=== PATIENT | female | born 1940 | race Caucasian/White ===

== ENCOUNTER 2016-11-29 09:51 | Emergency (ER) | payer OTHER ==
--- NOTE | 2016-11-29 09:49 | EDPHY ---
H & P Time Seen by Provider: 11/29/16 09:49 HPI/ROS: CHIEF COMPLAINT: Passed out at home HISTORY OF PRESENT ILLNESS: This 76-year-old woman was at home and has been feeling pretty well except for having some congestion the last couple of days. She made breakfast her grandchild and then felt a little bit lightheaded sat down and passed out for about a minute. No seizure activity no trauma. She did have a report of hypotension prior to arrival with a blood pressure of 74 systolic by EMS prior to arrival. REVIEW OF SYSTEMS: Eye: no change in vision ENT: no sore throat, some head/congestion as in HPI Cardiac: no chest pain or syncope Pulmonary: no cough or SOB Abdomen: no vomiting, diarrhea, abdominal pain Musculoskeletal: no back pain Skin: no rash Neuro: no headache Constitutional: no fever : no urinary symptoms A comprehensive 10 point review of systems is otherwise negative aside from elements mentioned in the history of present illness. PAST MEDICAL HISTORY: Hypothyroid and cholesterol Social history: No smoking or alcohol General Appearance: Alert and conversant, cooperative. Eyes: No scleral icterus. ENT, Mouth: Normal mucous membranes. Respiratory: Normal respiratory effort, breath sounds equal, lungs are clear to auscultation. Cardiovascular: Regular rate and rhythm. 2/6 systolic murmur. Gastrointestinal: Abdomen is soft and non tender. Neurological: Alert and oriented x3. Normally conversant. Face symmetric, normal movement and sensation in all extremities. Skin: Warm and dry, no rashes. Musculoskeletal: No peripheral edema and no joint swelling. Psychiatric: Not agitated. Emergency Department course/MDM: Patient presents with syncope today, risk factors include heart murmur on exam which the patient tells me she has never had before, and report of hypotension with blood pressure in the 70s pre-hospital. Her primary care physician is Uzair Cummings at [facility]. 1048: Results discussed with patient. [facility] called at this time; Dr. Browning , admit to [facility]. Per Nam no previous mention of cardiac murmur in problem list. 1228: Discussed with Dr. Tejada at 12:27 p.m. requested oral aspirin and adding D -dimer. Constitutional: Initial Vital Signs Heart Rate 64 11/29/16 10:01 Respiratory Rate 18 11/29/16 10:01 Blood Pressure 103/64 11/29/16 10:01 O2 Sat (%) 94 11/29/16 10:01 O2 Delivery Mode Room Air Allergies/Adverse Reactions: No Known Allergies Allergy (Unverified 11/29/16 10:05) Home Medications: Medication Instructions Recorded Estradiol [Estradiol Transdermal 1 each TD FR 11/29/16 Patch] Levothyroxine [Synthroid 100 mcg 100 mcg PO HS 11/29/16 (*)] Niacin [Niacin 500 mg (*)] 500 mg PO DAILY 11/29/16 Medical Decision Making - Diagnostics EKG Interpretation: 12-lead EKG interpreted by me; official reading is in trace master. My interpretation is sinus bradycardia rate of 48 otherwise normal Differential Diagnosis: Differential diagnosis considered for syncope including but not limited to vasovagal syncope, arrhythmia, dehydration, and blood loss. Consult/Admit Bed Type: [facility] for Cards 1108, [place] 1109 for Garas - Data Points Laboratory Results: Laboratory Results 11/29/16 09:53 11/29/16 09:53 11/29/16 11/29/16 09:53 09:53 WBC 7.72 10^3/uL 10^3/uL (3.80-9.50) RBC 4.76 10^6/uL 10^6/uL (4.18-5.33) Hgb 15.0 g/dL g/dL (12.6-16.3) Hct 45.7 % % (38.0-47.0) MCV 96.0 fL fL (81.5-99.8) MCH 31.5 pg pg (27.9-34.1) MCHC 32.8 g/dL g/dL (32.4-36.7) RDW 12.3 % % (11.5-15.2) Plt Count 332 10^3/uL 10^3/uL (150-400) MPV 10.5 fL fL (8.7-11.7) Neut % (Auto) 53.3 % % (39.3-74.2) Lymph % (Auto) 38.9 % % (15.0-45.0) Miller % (Auto) 5.6 % % (4.5-13.0) Eos % (Auto) 1.2 % % (0.6-7.6) Baso % (Auto) 0.6 % % (0.3-1.7) Nucleat RBC Rel Count 0.0 % % (0.0-0.2) Absolute Neuts (auto) 4.12 10^3/uL 10^3/uL (1.70-6.50) Absolute Lymphs (auto) 3.00 10^3/uL 10^3/uL (1.00-3.00) Absolute Monos (auto) 0.43 10^3/uL 10^3/uL (0.30-0.80) Absolute Eos (auto) 0.09 10^3/uL 10^3/uL (0.03-0.40) Absolute Basos (auto) 0.05 10^3/uL 10^3/uL (0.02-0.10) Absolute Nucleated RBC 0.00 10^3/uL 10^3/uL (0-0.01) Immature Gran % 0.4 % % (0.0-1.1) Immature Gran # 0.03 10^3/uL 10^3/uL (0.00-0.10) Sodium 141 mEq/L mEq/L (134-144) Potassium 4.5 mEq/L mEq/L (3.5-5.2) Chloride 106 mEq/L mEq/L (97-110) Carbon Dioxide 24 mEq/l mEq/l (22-31) Anion Gap 11 mEq/L mEq/L (8-16) BUN 18 mg/dL mg/dL (7-23) Creatinine 0.8 mg/dL mg/dL (0.6-1.0) Estimated GFR > 60 Glucose 129 mg/dL H mg/dL (70-100) Calcium 9.7 mg/dL mg/dL (8.5-10.4) Troponin I < 0.012 ng/mL ng/mL (0-0.034) Medications Given: Discontinued Medications Sodium Chloride (Ns) 500 mls @ 0 mls/hr IV ONCE ONE PRN Reason: As Directed Stop: 11/29/16 10:01 Last Admin: 11/29/16 10:22 Dose: 500 mls Departure - Departure Disposition: [facility] Inpatient Acute Clinical Impression: Syncope Qualifiers: Syncope type: unspecified Qualified Code(s): R55 - Syncope and collapse Condition: Good
[2016-11-29] MEDS ORDERED: NS 500 ML IV ONE (10:00)
--- NOTE | 2016-11-29 10:07 | CPEKG ---
Heart Rate: 48 RR Interval: 1250 P-R Interval: 196 QRSD Interval: 88 QT Interval: 504 QTC Interval: 451 P Slater: 46 QRS Slater: -4 T Wave Slater: 43 EKG Severity - OTHERWISE NORMAL ECG - EKG Impression: SINUS BRADYCARDIA Electronically Signed By: Fazal Subramanian 29-Nov-2016 10:17:37
[2016-11-29 10:12] LABS: % IMMATURE GRANULYOCYTES 0.4 % (0.0-1.1); ABSOLUTE IMMATURE GRANULOCYTES 0.03 10^3/uL (0.00-0.10); ADD DIFF? NO; ADD MORPH? NO; ADD SCAN? NO; ATYPICAL LYMPHOCYTE FLAG 10 (0-99); FRAGMENT RBC FLAG 0 (0-99); HEMATOCRIT 45.7 % (38.0-47.0); LEFT SHIFT FLG 0 (0-99); LIPEMIA HEMOLYSIS FLAG 80 (0-99); MEAN CELL HEMOGLOBIN 31.5 pg (27.9-34.1); MEAN CELL HEMOGLOBIN CONCENTR. 32.8 g/dL (32.4-36.7); MEAN PLATELET VOLUME 10.5 fL (8.7-11.7); PLATELET CLUMPS FLAG 10 (0-99); PLATELET COUNT 332 10^3/uL (150-400); RED BLOOD CELL COUNT 4.76 10^6/uL (4.18-5.33); RED CELL DISTRIBUTION WIDTH 12.3 % (11.5-15.2)
[2016-11-29 10:38] LABS: ANION GAP 11 mEq/L (8-16); CALCIUM 9.7 mg/dL (8.5-10.4); CARBON DIOXIDE 24 mEq/l (22-31); CHLORIDE 106 mEq/L (97-110); CREATININE 0.8 mg/dL (0.6-1.0); GLOMERULAR FILTRATION RATE > 60; GLUCOSE 129 mg/dL (70-100); POTASSIUM 4.5 mEq/L (3.5-5.2); SODIUM 141 mEq/L (134-144)
[2016-11-29 10:46] LABS: TROPONIN I < 0.012 ng/mL (0-0.034)
--- NOTE | 2016-11-29 12:05 | ECHO ---
[id number] + + [address] : : [place] [address] : : [phone] + + Adult Echocardiographic Report + -----+ :Name: Micaela PATEL Date: 11/29/2016 11:38 AM : : Hospital Admission Number: [id number] Location: 16: :: 1940 Gender: Female Height: 64 in : :Age: 76 yrs Race: WH Weight: 171 lb : :Reason For Study: Eval LV Fx : : BSA: 1.8 meters2 : :History: Syncope, New murmur : + -----+ MMode/2D Measurements \T\ Calculations IVSd: 0.74 cm LVIDd: 3.6 cm FS: 33.3 % Ao root diam: 3.3 cm LVPWd: 0.77 cm LVIDs: 2.4 cm EDV(Teich): 55.5 ml ACS: 1.1 cm ESV(Teich): 20.6 ml LA dimension: 3.8 cm EF(Teich): 62.9 % LVOT diam: 2.0 cm LVOT area: 3.1 cm2 Normal Measurement Values: + + :LVIDd (3.5-5.7cm) IVSd (0.6-1.1cm) LVPWd (0.6-1.1cm) Aortic Root (2.0-3.7cm)Left Atrium (1.5-4.0cm): :LV Vol(d) (76-115ml) LV Vol(s) (29-48ml) Ejec Fraction (50-65%)PV Alonso (0.6- 1.2m/s) TV Alonso (0.4-1.0m/s) : :MV E Alonso (0.8-1.0m/s)MV A Alonso (0.3-1.0m/s)LVOT Alonso (0.7-1.2m/s) Asc Ao Alonso ( 0.9-1.8m/s) : + + Doppler Measurements \T\ Calculations MV E max alonso: Ao V2 max: LV V1 max: SV(LVOT): 102.0 cm/sec 259.0 cm/sec 100.0 cm/sec 74.1 ml MV A max alonso: Ao max P.9 mmHgLV V1 max P.4 cm/sec Ao mean P.0 mmHg MV E/A: 1.3 16.0 mmHg LV V1 mean PG: Ao V2 mean: 2.0 mmHg 189.8 cm/sec LV V1 mean: Ao V2 VTI: 67.5 cm 62.2 cm/sec LV V1 VTI: 23.6 cm SAULO(I,D): 1.1 cm2 SAULO(V,D): 1.2 cm2 PA V2 max: TR max alonso: 76.0 cm/sec 229.0 cm/sec PA max P.3 mmHg TR max P.0 mmHg RAP systole: 5.0 mmHg RVSP(TR): 26.0 mmHg Left Ventricle The left ventricle is normal in size. There is normal left ventricular wall thickness. The left ventricular ejection fraction is normal. There is Doppler evidence for diastolic dysfunction. Ejection Fraction = 63%. The left ventricular wall motion is normal. Right Ventricle The right ventricle is normal in size and function. Atria The left atrium is mildly dilated. Right atrial size is normal. Mitral Valve The mitral valve is normal in structure and function. There is no mitral valve stenosis. There is trace mitral regurgitation. Tricuspid Valve Normal tricuspid valve. There is trace tricuspid regurgitation. Right ventricular systolic pressure is normal. Aortic Valve Moderate Aortic Valve Calcification. Mild valvular aortic stenosis. The Ao Vmax is 2.6 m/s, with a Mean PG of 17mmHg and a max PG 27mmHg. There is no aortic insufficiency. Turbulent flow is noted thru the aortic valve. Pulmonic Valve The pulmonic valve is normal in structure and function. There is no pulmonic valvular regurgitation. Great Vessels The aortic root is normal size. Pericardium/Pleural There is no pericardial effusion. Conclusion A complete two-dimensional transthoracic echocardiogram was performed (2D, M-mode, Doppler and color flow Doppler). The left ventricular ejection fraction is normal. There is Doppler evidence for diastolic dysfunction. Ejection Fraction = 63%. The left ventricular wall motion is normal. The left atrium is mildly dilated. The mitral valve is normal in structure and function. There is trace mitral regurgitation. There is trace tricuspid regurgitation. Right ventricular systolic pressure is normal. Moderate Aortic Valve Calcification Mild valvular aortic stenosis. The Ao Vmax is 2.6 m/s, with a Mean PG of 17mmHg and a max PG 27mmHg. There is no aortic insufficiency. Turbulent flow is noted thru the aortic valve. There is no pericardial effusion. Final Reading Physician: Genevieve Cerda signed on 11/29/2016 12:04 PM Ordering Physician: MIYA DENG Performed By: Daniel Vazquez, MATICS
[2016-11-29] MEDS ORDERED: ASPIRIN EC 325 MG TAB PO ONE (12:28)
[2016-11-29 13:04] VITALS: BP 132/81; RESP 16
--- NOTE | 2016-11-29 15:01 | GHP ---
DATE OF ADMISSION: 11/29/2016 CHIEF COMPLAINT: Syncope. HISTORY OF PRESENT ILLNESS: This is a 76-year-old female, with not much in the way of past medical history. She has some hyperlipidemia, and decided today to take Niacin. She has never taken this m edication before. She took it and felt a significant amount of flushing, and then 15 minutes later felt nauseous and dizzy, and then had a syncopal episode. When EMS came her heart rate was in the 4 0s, and blood pressure was low in the 70s. When she came to the ER her blood pressure was 103/64, w ith a heart rate in the 60s. She currently is completely back to normal. She denies any type of he art palpitations previous, or during the episode. She denies any chest pain. No fevers or chills, no shortness of breath. She has not had syncope like this before. REVIEW OF SYSTEMS: A 10-point review of systems was obtained and was negative. PAST MEDICAL HISTORY: Hyperlipidemia, hypothyroidism, remote history of viral pericarditis. MEDICATIONS: Reviewed. SOCIAL HISTORY: No smoking or alcohol, lives with her . FAMILY HISTORY: Mother when patient was 11 years old. PHYSICAL EXAM: VITAL SIGNS: Afebrile, blood pressure is 132/81, heart rate 67, oxygen saturation 9 7% on room air. GENERAL: Patient is well-developed, in no apparent distress. HEENT: Nonicteric s clerae, extraocular movements intact. Moist mucous membranes. NECK: Supple, no thyromegaly. LUNG S: Good effort, clear to auscultation bilaterally. CARDIOVASCULAR: Regular rate and rhythm, a 2/6 systolic murmur, heard best at the right upper sternal border. ABDOMEN: Positive bowel sounds, so ft, nontender, nondistended, no hepatosplenomegaly. EXTREMITIES: No clubbing, cyanosis, or edema. SKIN: Without rash, dry, intact. NEUROLOGIC: Alert and oriented x3, moving all 4 extremities equ ally. PSYCH: Normal mood and affect. LABORATORY DATA: Chemistries normal. D-dimer is negative, CBC is normal. EKG is personally review ed and interpreted, shows sinus bradycardia with no ischemic changes. Echocardiogram showed mild ao rtic stenosis, normal EF, no wall motion abnormalities. Chest x-ray is essentially negative. ASSESSMENT: This is a 76-year-old female with no previous cardiac history who presented with a sync opal episode after taking niacin. PLAN: Syncope. This sounds more like vasovagal versus a reaction to the Niacin. She did have kerri ycardia and hypertension, which would be consistent with vasovagal etiology. Currently her vital si gns are completely normal. She is asymptomatic. She has a negative D-dimer, negative EKG, negative troponin. I discussed the case with Cardiology, who has seen the patient as well. At this time nikko valencia is wanting to be discharged. At this point I feel like this is reasonable, as vasovagal seems to be the most likely etiology. She is to follow up with her land surveyor manager and with her primary car e doctor, and consider a treadmill stress test. /[id number]/MODL
[2016-11-29 15:11] VITALS: PULSE 81; TEMP 97.9; O2SAT 96
--- NOTE | 2016-11-29 17:24 | GCON ---
DATE OF CONSULTATION: 11/29/2016 CHIEF COMPLAINT: Syncope. HISTORY OF PRESENT ILLNESS: We were asked by Dr. Subramanian to visit with the patient. The patient is a pleasant 76-year-old female with dyslipidemia and hypothyroidism but no known cardiovascular disease . She was in her usual state of good health. This morning, she took a new preparation of niacin th erapy that she had never tried before. She started feeling flushed and itchy. Shortly after this, she started to feel nauseated and lightheaded. She was in the middle of eating breakfast. She was sitting on a stool in her kitchen and lost consciousness for approximately 1 minute, according to he r granddaughter and her . She was unresponsive when her tried to speak with her, but he says that she was breathing. She did have bladder incontinence, and there was no obvious seizur e activity. When EMS arrived, she had regained consciousness. By their report, she was somewhat hy potensive and bradycardic. She was brought to the ER for further evaluation. When I interview her, she states that she is feeling back to normal. She has not had any syncope fo r quite some time but, as a younger person, did have syncope when she was volume depleted. She has never had syncope with exercise. She denies any preceding chest pain, palpitations, or dyspnea. Sh e exercises regularly, jogging and swimming, and has no difficulties with exercise. She also admits that this morning she took a different supplement that may have actually been her valdo jolley's prostate supplement. ALLERGIES: No known drug allergies. PAST MEDICAL HISTORY: Hypothyroidism, osteopenia, dyslipidemia, GERD, and an episode of pericarditi s several years ago. PAST SURGICAL HISTORY: D and C 38 years ago, endoscopy for peptic ulcer disease. MEDICATIONS: As an outpatient, estradiol, Synthroid, and several supplements including kelp, K2, mu ltivitamin, magnesium, and B vitamins. SOCIAL HISTORY: The patient does not smoke cigarettes. She drinks alcohol in moderation. She is m arried and her is at the bedside. FAMILY HISTORY: Negative for premature coronary disease or sudden cardiac . PHYSICAL EXAM: VITAL SIGNS: Blood pressure 132/81, heart rate 81, oxygen saturation 96% on room ai r. T-max is 37.1. GENERAL: Well-appearing older female in no acute distress. HEENT: Sclerae are clear and free of jaundice. Mucous members are moist. Normocephalic, atraumatic. CARDIOVASCULAR: JVP less than 10. Carotids equal and 2+ without bruit. Regular rate and rhythm with a 2/6 early peaking systolic ejection murmur at the base. No S3, S4, or rub. LUNGS: Clear to auscultation silva aterally without wheezes, rhonchi, or rales. ABDOMEN: Soft, nontender, and nondistended without br uits, masses, or hepatosplenomegaly. EXTREMITIES: Warm and well perfused without cyanosis, clubbin g, or edema. NEURO: Alert and oriented x3 without gross focal neurological deficits. LABORATORY DATA: CBC is normal. D-dimer is negative. Sodium 141, potassium 4.5, chloride 106, bic arb 24, BUN 18, creatinine 0.8, glucose 129. Troponin is negative. EKG, reviewed by me, shows sinus bradycardia with no ischemic ST-T wave abnormalities. Her QT inter brandy is minimally prolonged at 468 milliseconds. Echocardiogram, personally reviewed by me: Normal LV size and systolic function. No regional wall motion abnormalities. She does have mild aortic stenosis with a mean gradient of 17 mmHg. Chest x-ray, reviewed by me: No acute cardiopulmonary process. ASSESSMENT/PLAN: A 76-year-old female with an episode of syncope. I think the most likely explanat ion for her event is vasovagal in the setting of taking a new preparation of niacin as well as a sup plement that may actually have been intended for prostate health and may have some vasodilatory prop erties. She is somewhat bradycardic upon her EKG, but she does have high vagal tone and I do not th ink that she had bradycardic arrhythmia nor tachycardiac arrhythmia explaining her syncope. It is r eassuring that her echocardiogram is normal. Her left ventricular ejection fraction is normal. Venecia n with mild aortic stenosis, I do not think that her valvular disease could explain her syncope. I have urged her to stop her niacin supplementation as well as the additional supplementation she is taking. She needs surveillance echocardiograms to follow her aortic valve disease. Could consider outpatient risk stratification with exercise stress testing. Finally, she remains on estradiol, allegedly for her osteopenia. I explained that from a cardiovasc ular standpoint this is not recommended. She can follow up with her primary care physician regardin g this. At this point, she appears stable for discharge. I discussed the case with Dr. Subramanian and Dr. Saenz. /[id number]/RAEANNL
== END 2016-11-29 15:11 | disposition home or self-care (01) ==
LOC: EDUNIT# → UNDOADMOB 11:10
DX: R55 Syncope and collapse (principal)